=== PATIENT | female | born 1975 | race Caucasian/White ===

== ENCOUNTER 2017-12-02 06:40 | Day surgery (SDC) | payer OTHER ==
[~2017-12-02] VITALS: Ht 162.6 cm; Wt 76.4 kg
[2017-12-02] MEDS ORDERED: SODIUM CHLORIDE 0.9% 1,000 ML IV SCH (06:57)
[2017-12-02 07:04] VITALS: BP 126/91
[2017-12-02] MEDS ORDERED: ZOLP-413 PO (07:23)
[2017-12-02] MEDS ORDERED: MAGN400T36 PO (07:23)
[2017-12-02] MEDS ORDERED: SUMA50TA3 PO (07:23)
[2017-12-02] MEDS ORDERED: MIDAZOLAM 1 MG/ML, 2ML ONE (08:09)
[2017-12-02] MEDS ORDERED: FENTANYL PF 100 MCG/2ML ONE (08:09)
[2017-12-02] MEDS ORDERED: ADENOSINE 6 MG/2 ML ONE (08:09)
[2017-12-02] MEDS ORDERED: ISOPROTERENOL 0.2MG/ML, 5ML ONE (08:10)
[2017-12-02] MEDS ORDERED: ACETAMINOPHEN 325 MG TABLET PO PRN (09:30)
[2017-12-02] MEDS ORDERED: TEMPLATE NON-FORMULARY MED. (Zolpidem Tartrate** 5 MG) PO SCH (21:00)
[2017-12-03] MEDS ORDERED: SUMATRIPTAN SUCCINATE 50 MG PO SCH (09:00)
[2017-12-03] MEDS ORDERED: MAGNESIUM OXIDE 200 MG PO SCH (09:00)
== END 2017-12-02 14:12 | disposition home or self-care (01) ==
LOC: CACL 06:40
PROVIDERS: ATTEND Internal Medicine Cardiovascular Disease
DX: I47.1 Supraventricular tachycardia (principal); Z88.1 Allergy status to other antibiotic agents
CPT/HCPCS: 36415; 84703; 93613; 93621; 93653; 99156; 99157; C1730; C1894; C2630; J2250; J3010; J0153